=== PATIENT | male | born 2000 | race Two or more races ===

== ENCOUNTER 2021-03-16 02:51 | Emergency (ER) | payer BC, OTHER ==
[~2021-03-16] VITALS: Ht 175.3 cm; Wt 170.1 kg
[2021-03-16 03:41] LABS: Albumin 3.3 g/dL (3.4-5.0); Calcium 8.2 mg/dL (8.5-10.1); Magnesium 2.2 mg/dL (1.6-2.6); Potassium 3.6 mmol/L (3.5-5.1)
[2021-03-16 03:46] LABS: Bilirubin, Total 0.6 mg/dL (0.2-1.0)
[2021-03-16 04:02] LABS: INR 1.17 (0.9-1.15)
[2021-03-16] MEDS ORDERED: ENOXAPARIN SOD 100 MG/1 ML SYRINGE SC ONE (04:15)
[2021-03-16 04:23] LABS: Basophils # (auto) 0 10 ^3/uL (0-0.2); Basophils % (auto) 0.2 % (0.0-2.0); Eosinophils # (auto) 0 10 ^3/uL (0-0.8); Lymphocytes # (auto) 1.4 10 ^3/uL (0.4-5.4)
[2021-03-16 04:25] LABS: Eosinophils % (auto) 0.3 % (0.0-7.0); Hemoglobin 13.6 g/dL (13.5-17.5); Lymphocytes % (auto) 13.6 % (10.0-50.0); Mean Corpuscular Hgb Conc. 33.9 g/dL (32.0-36.0); Mean Corpuscular Volume 79.8 fL (80.0-100.0); Monocytes # (auto) 1.4 10 ^3/uL (0-1.3); Monocytes % (auto) 13.8 % (0.0-12.0); Neutrophils # (auto) 7.5 10 ^3/uL (1.6-8.6); Neutrophils % (auto) 72.1 % (37.0-80.0); Red Blood Cells 5.01 10^6/uL (4.5-5.90); Red Cell Distribution Width 13.6 % (11.8-14.3); White Blood Cell 10.4 10^3/uL (4.4-10.8)
[2021-03-16] MEDS ORDERED: ONDANSETRON HCL 4 MG/2 ML VIAL IV PRN (05:15)
[2021-03-16] MEDS ORDERED: MORPHINE SULFATE INJECTION 2 MG/ML SYRG IV PRN (05:15)
[2021-03-16] MEDS ORDERED: NITROGLYCERIN 0.4 MG SL TAB SL PRN (05:15)
[2021-03-16] MEDS ORDERED: ATORVASTATIN 20 MG TAB PO ONE (05:15)
[2021-03-16] MEDS ORDERED: SODIUM CHLORIDE 0.9% 1,000 ML IV SCH (05:15)
[2021-03-16 07:37] VITALS: BP 128/77
[2021-03-16] MEDS ORDERED: PANTOPRAZOLE 40 MG TAB PO SCH (10:00)
[2021-03-16] MEDS ORDERED: ASPirin 81 mg TAB PO SCH (10:00)
[2021-03-16] MEDS ORDERED: ATORVASTATIN 20 MG TAB PO SCH (22:00)
== END 2021-03-16 08:19 | disposition short-term general hospital (02) ==
LOC: EDBD 02:51 → ER 02:54 → TELE 05:03 → UNDOADMIN 05:03 → UNDODISIN 07:37 → TELE 08:19
DX: I21.4 Non-ST elevation (NSTEMI) myocardial infarction (principal); Z20.822 Contact with and (suspected) exposure to COVID-19
CPT/HCPCS: 36415; 71045; 80053; 83036; 83735; 83880; 84484; 85379; 85610; 87426; 96372; 99291; J1650; 93005; G0378